=== PATIENT | female | born 1985 | race Native Hawaiian/Other Pacific Islander ===

== ENCOUNTER → 2017-09-29 | Outpatient (CLI) | payer OTHER ==
[~2017-09-29] MED LIST: RIZA10TA18 PO
[2017-09-29 16:42] LABS: BASO % 0.3 %; BASO ABS # 0.03 K/uL (0-0.2); EOS ABS # 0.19 K/uL (0-0.5); HEMATOCRIT 40.5 % (37-47); HEMOGLOBIN 14.2 g/dL (12.0-16.0); IG# 0.02 K/uL (0.00-0.02); LYMPH % 18.3 %; LYMPH ABS # 1.78 K/uL (1.2-3.4); MEAN CELL VOLUME 88.4 fL (80-100); MEAN CORPUSCULAR HGB CONC 35.1 g/dl (32-36); MEAN PLATELET VOLUME 8.7 fL (7.4-10.4); MONO % 6.7 %; MONO ABS # 0.65 K/uL (0.11-0.59); NEUT % 72.5 %; NEUT ABS # 7.04 K/uL (1.4-6.5); PLATELET COUNT 347 K/uL (130-400); RED CELL DISTRIBUTION WIDTH SD 42.1 fL (36.4-46.3); WHITE BLOOD COUNT 9.71 K/uL (4.8-10.8)
== END | disposition home or self-care (01) ==
LOC: C.LAB1850 15:22
PROVIDERS: ATTEND Obstetrics & Gynecology
DX: Z34.01 Encounter for supervision of normal first pregnancy, first trimester (principal)

== ENCOUNTER → 2017-09-29 | Outpatient (CLI) | payer OTHER | END | disposition home or self-care (01) | LOC: C.PAPS 10:05 | PROVIDERS: ATTEND Obstetrics & Gynecology | DX: Z12.4 Encounter for screening for malignant neoplasm of cervix (principal); R87.616 Satisfactory cervical smear but lacking transformation zone ==

== ENCOUNTER → 2017-10-26 | Outpatient (CLI) | payer OTHER | END | disposition home or self-care (01) | LOC: C.LAB1850 14:29 | PROVIDERS: ATTEND Obstetrics & Gynecology | DX: Z34.02 Encounter for supervision of normal first pregnancy, second trimester (principal); N39.0 Urinary tract infection, site not specified ==

== ENCOUNTER → 2018-03-23 | Outpatient (CLI) | payer OTHER | END | disposition home or self-care (01) | LOC: C.LABSPEC 13:17 | PROVIDERS: ATTEND Obstetrics & Gynecology | DX: Z34.03 Encounter for supervision of normal first pregnancy, third trimester (principal); Z3A.00 Weeks of gestation of pregnancy not specified ==

== ENCOUNTER 2021-11-17 06:01 | Inpatient (IN) ==
[2021-11-17] MEDS ORDERED: OXYTOCIN 30 UNITS/500 ML BAG IV PRN ×2 (06:39→12:05)
[2021-11-17] MEDS: LACTATED RINGER'S 1,000 ML IV PRN ×3 (06:59→09:51)
[2021-11-17 07:06] LABS: Hematocrit (blood only) 37.1 % (37-47); Mean Corpuscular Hemoglobin 27.2 pg (25-34); Mean Corpuscular Hgb Conc 32.3 g/dL (32-36); Mean Corpuscular Volume 84.1 fL (80-100); Mean Platelet Volume 8.5 fL (7.4-10.4); Platelet Count 373 K/uL (130-400); RDW Standard Deviation 42.5 fL (36.4-46.3); Red Blood Count 4.41 M/uL (4.2-5.4); White Blood Count 10.89 K/uL (4.8-10.8)
[2021-11-17] MEDS ORDERED: ePHEDrine sulfate 50 MG/ML AMP ONE (07:48)
[2021-11-17] MEDS ORDERED: fentaNYL citrate 100 MCG/2 ML VIAL ONE (07:48)
[2021-11-17] MEDS ORDERED: SODIUM CHLORIDE 0.9% INJ 10 ML VIAL ONE (07:48)
[2021-11-17] MEDS ORDERED: fentaNYL 2MCG/ML ROPIVACAINE 1.25MG/ML 100 ML BAG EPI ONE (07:49)
[2021-11-17] MEDS ORDERED: BUPIVACAINE 0.25% 30 ML VIAL ONE (07:49)
[2021-11-17] MEDS ORDERED: ePHEDrine sulfate 50 MG/ML AMP IV PRN (08:23)
[2021-11-17] MEDS ORDERED: fentaNYL 2MCG/ML ROPIVACAINE 1.25MG/ML 100 ML BAG EPI PRN (08:23)
[2021-11-17] MEDS ORDERED: NALOXONE HCL 1 MG in SODIUM CHLORIDE 0.9% 1000ML 1,000 ML IV PRN (08:23)
[2021-11-17] MEDS ORDERED: NALBUPHINE HCL INJ 10 MG/ML AMP IV PRN (08:23)
[2021-11-17] MEDS ORDERED: diphenhydrAMINE 50 MG/ML VIAL IV PRN (08:23)
[2021-11-17] MEDS ORDERED: ONDANSETRON INJ 2 MG/ML 2 ML VIAL IV PRN (08:23)
[2021-11-17] MEDS ORDERED: NALOXONE HCL 0.4 MG/1 ML VIAL/CARP IV PRN (08:23)
--- NOTE | 2021-11-17 08:28 | Anesthesiology Consultation ---
Date of Service November 17, 2021 Assessment & Plan Chart Review Chart Review: Patient NOT seen in Pre Admission Testing and Acceptable Risk for Labor Epidural Consults Requested none ASA ASA2 Proposed Anesthesia Anesthesia Type: Labor Epidural and CSE Risk / Benefits Reviewed With: PT / POA / Parent / Guardian, Accepts Plan and Informed Consent Obtained History Height/Weight Height: 5 ft 5 in Weight: 75.75 kg Allergies Allergy/AdvReac Type Severity Reaction Status Date / Time No Known Allergies Allergy Verified 11/17/21 06:18 Medications Home Medications Medication Instructions Recorded Confirmed Last Taken prenat.vits,brenda,hcc-yosc-tsikv 1 tab PO DAILY 05/26/21 11/17/21 11/16/21 08:00 Active Medications Generic Name Dose Route Start Last Admin Trade Name Freq PRN Reason Stop Dose Admin Lactated Ringer's 1,000 mls @ 125 mls/hr 11/17/21 06:39 11/17/21 08:09 Lr IV 11/19/21 06:38 999 mls/hr .Q8H PRN Administration L&D Protocol Protocol NPO Date Last Intake of Fluids: 11/17/21 Time Last Intake of Fluids: 07:00 Date Last Intake of Solids: 11/16/21 Time Last Intake of Solids: 20:00 Past Medical History Medical History Hypokalemia Low lying placenta nos or without hemorrhage, second trimester Varicella Exercise / Class Metabolic Activity II 4-5 Yardwork/Stairs/Walk up hill Past Family History Family History Sister Bipolar disorder Breast cancer Denies family history of Ovarian cancer Prostate cancer Myocardial infarction Colorectal cancer Past Surgical History Surgical History History of therapeutic Past Anesthesia History No Hx of Anesthesia Complications and No Family Hx of Anesthesia Complications History of PONV No Hx of PONV and No Hx of Motion Sickness Social History Smoking Status: Never smoker Hx Alcohol Use: Yes Hx Substance Use: No substance use type: does not use Review of Systems no chest pain or sob Physical Exam Vital Signs Last Vital Signs Temp 36.5 C 11/17/21 07:06 Pulse 73 11/17/21 08:24 Resp 18 11/17/21 07:06 BP 105/70 03/29/22 07:12 Pulse Ox 98 11/17/21 08:24 ENMT Mouth: no TMJ abnormality Thyromental Distance: > or= 3.5 Finger Breadths Mallampati Class: II Neck normal visual inspection Respiratory normal respiratory effort Auscultation: lungs clear to auscultation bilaterally Cardiovascular Rate/Rhythm: regular rate and regular rhythm Musculoskeletal Spine: normal cervical ROM Neurologic moves all extremities Psychiatric Orientation: alert and oriented x 3 Testing Laboratory Results 11/17/21 06:53
--- NOTE | 2021-11-17 10:15 | History & Physical Report ---
Date of Service November 17, 2021 Assessment & Plan (1) Normal labor: Plan: IUP at term in active labor epidural analgesia requested and administered but with hotspot on LLQ will work on better pain management prior to AROM anticipate vaginal Admission and Anticipated Discharge Date Admission Date: November 17, 2021 History of Present Illness Chief Complaint: labor Primary Care Provider: NO PCP Patient is a 36-year-old 4 para 1-0-2-1 white female EDC of 11/15/2021 who presents at 40 and 2/7 weeks in labor. Contractions started approximately 11 18. She denies ruptured membranes or bloody show. GBS is negative. complicated by advanced maternal age. Allergies Allergy/AdvReac Type Severity Reaction Status Date / Time No Known Allergies Allergy Verified 11/17/21 06:18 Home Medications Medication Instructions Recorded Confirmed Type prenat.vits,brenda,shk-rgml-ahoex 1 tab PO DAILY 05/26/21 11/17/21 History Patient History Medical History Hypokalemia Low lying placenta nos or without hemorrhage, second trimester Varicella Surgical History History of therapeutic Family History Sister Bipolar disorder Breast cancer Denies family history of Ovarian cancer Prostate cancer Myocardial infarction Colorectal cancer Social History Smoking Status: Never smoker Hx Alcohol Use: Yes Hx Substance Use: No Preferred Language: Macedonian Communication Ability: Effective [employer] Required: No Beliefs That Will Affect Care: None marital status: Single marital status details: lisset Tobias (33) [phone] Current Living Situation: Spouse and Family Current Living Situation Comment: lives with fob, son, dogs, cat-fob changing litter current occupational status: employed 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 Other Information That Helps Us Care for You: No Feels Safe at Home: Yes Safety Concerns: Feels Safe At This Time Dental Care, Regularly: Yes Assistive Devices: Glasses Review of Systems All systems reviewed & are unremarkable except as noted in HPI & below Physical Exam Constitutional: WD/WN, vitals as above Psychiatric: A+Ox3, euthymic affect Genitourinary: OB Exam Abdomen: + vertex, + estimated weight (7-8 pounds) and + regular contractions Manual OB Exam: + cervical dilation 8 cm, + cervical effacement 90% and + station 0 OB Exam Monitor Tracing: + external FHT monitor used, + external uterine monitor used, + category I and + normal FHT variability Results & Data ([facility]) Vital Signs (Past 12 Hours) Vital Signs Temp Pulse Resp BP Pulse Ox 11/17/21 10:04 70 92/58 L 97 11/17/21 09:59 53 L 98 11/17/21 09:58 64 97/63 L 11/17/21 09:54 79 98 11/17/21 09:52 84 94 11/17/21 09:49 66 98 11/17/21 09:48 63 97/59 L 11/17/21 09:45 75 99/54 L 11/17/21 09:44 73 98 11/17/21 09:39 68 97 11/17/21 09:38 72 100/66 11/17/21 09:34 73 98 11/17/21 09:33 72 106/70 11/17/21 09:30 97.7 F 69 18 101/64 11/17/21 09:29 67 99 11/17/21 09:26 85 110/54 L 11/17/21 09:25 81 89 L 11/17/21 09:24 73 98 11/17/21 09:19 82 100/60 98 11/17/21 09:17 67 92 11/17/21 09:15 18 11/17/21 09:14 85 105/60 97 11/17/21 09:09 79 89/50 L 97 11/17/21 09:04 69 98 11/17/21 09:03 83 85/50 L 11/17/21 08:59 80 104/58 L 98 11/17/21 08:57 18 11/17/21 08:54 79 97 11/17/21 08:52 79 18 90/55 L 93 11/17/21 08:50 88 90/52 L 11/17/21 08:49 79 98 11/17/21 08:48 75 89/50 L 11/17/21 08:47 67 18 92/55 L 11/17/21 08:46 75 89/51 L 11/17/21 08:44 82 94 11/17/21 08:43 77 91/53 L 11/17/21 08:42 86 18 90 11/17/21 08:41 73 124/65 11/17/21 08:39 78 134/65 92 11/17/21 08:37 72 121/70 93 11/17/21 08:34 67 98 11/17/21 08:29 78 95 11/17/21 08:27 78 92 11/17/21 08:24 73 98 11/17/21 08:21 79 89 L 11/17/21 08:19 61 98 11/17/21 08:16 89 91 11/17/21 08:14 60 99 11/17/21 08:09 74 99 11/17/21 08:04 78 99 11/17/21 07:59 67 99 11/17/21 07:54 77 97 11/17/21 07:49 63 99 11/17/21 07:44 57 L 100 11/17/21 07:12 60 105/70 11/17/21 07:06 97.7 F 18 11/17/21 06:22 63 132/58 L 11/17/21 06:18 97.7 F 18 Coding Level of Care Code None Diagnoses Normal labor O80; Z37.9
--- NOTE | 2021-11-17 11:41 | Anesthesia Procedure Note ---
Date of Service November 17, 2021 Anesthesia Post Epidural Note Vital Signs Vital Signs: Temp Pulse Resp BP Pulse Ox 36.5 C 87 18 123/59 L 96 11/17/21 09:30 11/17/21 11:34 11/17/21 10:31 11/17/21 11:33 11/17/21 11:34 Pain Intensity Bilateral Abdomen: Pain Intensity: 2 Notes Mental Status: alert / awake / arousable and participated in evaluation Nausea / Vomiting: adequately controlled Pain: adequately controlled Airway Patency, RR, SpO2: stable & adequate BP & HR: stable & adequate Hydration State: stable & adequate Neuraxial Anesthesia: was administered and sensory block is resolving Anesthetic Complications: no major complications apparent and Pt Satisfied with anesthetic care Epidural: Removed without complications and With tip intact
[2021-11-17] MEDS ORDERED: DIPHTHERIA/TETANUS/PERTUSSIS 0.5 ML SYR/VIAL IM ONE (12:05)
[2021-11-17] MEDS ORDERED: IBUPROFEN 600 MG TAB PO PRN (12:05)
[2021-11-17] MEDS ORDERED: HYDROCORTISONE ACETATE 25 MG SUPP PR PRN (12:05)
[2021-11-17] MEDS ORDERED: ACETAMINOPHEN 325 MG TAB PO PRN (12:05)
[2021-11-17] MEDS ORDERED: oxyCODONE/ACETAMINOPHEN 5mg/325mg TAB PO PRN (12:05)
[2021-11-17] MEDS ORDERED: bisacodyL 10 MG SUPP PR PRN (12:05)
[2021-11-17] MEDS ORDERED: BENZOCAINE 20% AER SPR 82.5 GM CAN EXT PRN (12:05)
--- NOTE | 2021-11-17 12:11 | Delivery Summary ---
Vaginal Delivery Summary Date of Service November 17, 2021 Vaginal Delivery Summary and 1st Degree LAC Patient is a 36-year-old 4 para 1-0-2-1 who presented at 40+ weeks in active labor. She received effective epidural analgesia and moved rapidly to full dilation. Membranes ruptured at the time of delivery. She pushed well over intact perineum for delivery of a viable female infant. The infant was vigorous upon arrival and was moving all 4 limbs. The was actually delivered by Sania Smith just prior to my arrival in the delivery room. After obtaining cord blood, the placenta was expressed intact with a three- vessel cord. A first-degree perineal laceration was repaired with 3-0 chromic in the usual fashion. Estimated blood loss is 200 cc. bleeding was controlled with dilute Pitocin and fundal massage. Mother and infant were doing well after delivery. [facility] [place] Vaginal Delivery Charge Delivery Type Details: and 1st Degree LAC
[2021-11-17] MEDS: DOCUSATE SODIUM 100 MG CAP PO SCH (21:25)
--- NOTE | 2021-11-18 06:58 | Obstetrical Progress Note ---
Date of Service November 18, 2021 Assessment & Plan (1) Encounter for care and examination after delivery: Plan: -Continue routine care -Vitals reviewed- HDS, afebrile -A+, GBS-, Rubella immune -Encourage ambulation, regular diet -Pain control with ibuprofen, acetaminophen PRN -Encourage -D/c later today with F/u in 6 weeks withOB Admission and Anticipated Discharge Date Admission Date: November 17, 2021 Supervising Physician Co-Signing Physician Notes Resident Physician Supervision Note: I interviewed and examined the patient. Discussed with Dr. Dowling and agree with findings and plan as documented in the note. Any exceptions or clarifications are listed here: [None] Documented By: Dea Vila MD, FACOG Subjective 36 yo PPD1 s/p at 40 2/7weeks complicated by AMA. Pt is doing well, has minimal pain. Pt is ambulating and voiding well. Pt is eating and drinking w/o n/v. Lochia mild. baby in the room without difficulty. No complaints at this time. Would like to go home when able. Review of Systems Review of Systems: All systems reviewed & are unremarkable except as noted in HPI & below Physical Exam Physical Exam: General: Alert, oriented, no acute distress Cardiac: Regular rate and rhythm, normal S1, S2. No murmurs appreciated. Respiratory: Clear to auscultation b/l with good air flow entry, symmetric chest rise and fall. No wheezes or crackles. No increased work of breathing or accessory muscle use Abdomen: Soft, nontender, nondistended. Fundus firm and palpable at 1 cm below umbilicus. No guarding or rebound. Skin: No rashes or lesions Extremities: Warm, dry, well-perfused with capillary refill <2s b/l. No lower extremity edema, erythema or swelling. Negative Jeronimo's sign b/l. Results & Data ([facility]) Vital Signs (Past 12 Hours) Vital Signs Temp Pulse Pulse Resp BP Pulse Ox 11/18/21 04:15 36.3 C L 77 18 91/63 L 96 11/18/21 00:20 36.9 C 67 16 92/53 L 98 11/17/21 19:15 36.8 C 86 20 103/68
[2021-11-18 07:32] LABS: Hematocrit (blood only) 32.4 % (37-47); Hemoglobin 10.8 g/dL (12.0-16.0); Mean Corpuscular Hemoglobin 27.8 pg (25-34); Mean Corpuscular Hgb Conc 33.3 g/dL (32-36); Mean Corpuscular Volume 83.3 fL (80-100); Mean Platelet Volume 8.4 fL (7.4-10.4); Platelet Count 346 K/uL (130-400); RDW Coefficient of Variation 14.3 % (11.5-14.5); RDW Standard Deviation 42.9 fL (36.4-46.3); Red Blood Count 3.89 M/uL (4.2-5.4); White Blood Count 12.98 K/uL (4.8-10.8)
[2021-11-18] MEDS ORDERED: PRENATAL VITAMIN 1 TAB PO SCH (08:00)
[2021-11-18] MEDS: DOCUSATE SODIUM 100 MG CAP PO SCH (08:34)
[2021-11-18] MEDS ORDERED: bisacodyL 5 MG TABEC PO SCH (20:00)
== END 2021-11-18 13:00 | disposition home or self-care (01) | DRG 807 ==
LOC: OPB 06:01 → 4S1 06:07 → 4E2 14:41
DX: O70.0 First degree perineal laceration during delivery; Z37.0 Single live birth; O48.0 Post-term pregnancy; Z3A.40 40 weeks gestation of pregnancy